=== PATIENT | female | born 1985 | race African-American/Black ===

== ENCOUNTER 2016-09-10 18:58 | Emergency (ER) | payer MEDICAID ==
[~2016-09-10] VITALS: Ht 162.6 cm; Wt 92.6 kg
[~2016-09-10 18:58] MED LIST: ULTR50TA5 PO
[2016-09-10 19:05] VITALS: BP 135/94; PULSE 80; RESP 16; TEMP 98.3; O2SAT 100
--- NOTE | 2016-09-10 22:08 | PD ---
HPI Chief Complaint: Abdominal Pain Time Seen by Provider: 21:50 Travel History International Travel<30 days: No Contact w/Intl Traveler<30days: No Traveled to known affect area: No History of Present Illness HPI 31-year-old female is complaining of lower abdominal pain. She's been having ongoing pain for a while but seems to be getting worse now she is having quite bad pain in the left lower quadrant. There is been no vomiting or diarrhea. She had an IUD in place which was removed a few months ago. She was a little bit nauseated earlier. She is having a lot of pain in the right lower quadrant 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-RECENT MRI) Psychiatric: Yes Reproductive: Yes Respiratory: No Immunizations Current: No Tetanus Vaccination: Unknown Influenza Vaccination: No ?: Not LMP: 08/27/16 "IT'S IRREGULAR LATELY" : 3 Para: 2 Miscarriage: 0 : 1 Ovarian Cysts: Yes Past Surgical History Appendectomy: Yes Gynecologic Surgery: Yes (TAB 06/06/11) Hysterectomy: No Tonsillectomy: Yes (ADENOIDS) Other Surgery: Yes (Adenoids) Social History Alcohol Use: No Tobacco Use: No Substance Use: No Allergies-Medications (Allergen,Severity, Reaction): Coded Allergies: Ceftin (Verified Allergy, Severe, 09/10/16) DENIES Darvocet-N 100 (Verified Allergy, Severe, VOMITING, 09/10/16) DENIES Penicillin (Unverified Allergy, Severe, Fever, 09/10/16) Amoxicillin (Unverified Adverse Reaction, Unknown, Nausea/Vomiting, ) Reported Meds & Prescriptions Reported Meds & Active Scripts Active No Active Prescriptions or Reported Medications Review of Systems General / Constitutional: No: Fever, Chills Eyes: No: Diploplia, Blurred Vision HENT: No: Headaches Cardiovascular: No: Chest Pain or Discomfort, Palpitations Respiratory: No: Cough, Shortness of Breath Gastrointestinal: Positive: Nausea, Abdominal Pain Genitourinary: Positive: Pelvic Pain Musculoskeletal: No: Myalgias Physical Exam Narrative GENERAL: Well-developed female SKIN: Focused skin assessment warm/dry. HEAD: Atraumatic. Normocephalic. EYES: Pupils equal and round. No scleral icterus. No injection or drainage. ENT: No nasal bleeding or discharge. Mucous membranes pink and moist. NECK: Trachea midline. No JVD. CARDIOVASCULAR: Regular rate and rhythm. No murmur appreciated. RESPIRATORY: No accessory muscle use. Clear to auscultation. Breath sounds equal bilaterally. GASTROINTESTINAL: Abdomen soft, non-tender, nondistended. Hepatic and splenic margins not palpable. Pelvic there is a moderate amount of whitish yellow discharge. There is pain with movement of the cervix. There is right adnexal tenderness MUSCULOSKELETAL: No obvious deformities. No clubbing. No cyanosis. No edema. NEUROLOGICAL: Awake and alert. No obvious cranial nerve deficits. Motor grossly within normal limits. Normal speech. PSYCHIATRIC: Appropriate mood and affect; insight and judgment normal. Data Data Last Documented VS Vital Signs Date Time Temp Pulse Resp B/P Pulse Ox O2 Delivery O2 Flow Rate FiO2 09/10/16 22:51 78 16 126/72 99 Room Air 09/10/16 19:05 98.3 Orders Complete Blood Count With Diff (09/10/16 22:01) Basic Metabolic Panel (Bmp) (09/10/16 22:01) Urinalysis - C+S If Indicated (09/10/16 22:01) Ed Urine Pregnancytest Poc (09/10/16 22:01) Ceftriaxone Inj (Rocephin Inj) (09/10/16 22:15) Ondansetron Inj (Zofran Inj) (09/10/16 22:15) Hydromorphone Pf Inj (Dilaudid Pf Inj) (09/10/16 22:15) Gc And Chlamydia Pcr (09/10/16 22:17) Wet Prep Profile (09/10/16 22:17) Urine Culture (09/10/16 22:05) Potassium Chloride (Kcl) (09/10/16 23:00) Labs Laboratory Tests Test 09/10/16 09/10/16 22:05 22:15 White Blood Count 9.4 TH/MM3 Red Blood Count 4.55 MIL/MM3 Hemoglobin 13.2 GM/DL Hematocrit 38.8 % Mean Corpuscular Volume 85.3 FL Mean Corpuscular Hemoglobin 29.1 PG Mean Corpuscular Hemoglobin 34.1 % Concent Red Cell Distribution Width 13.0 % Platelet Count 334 TH/MM3 Mean Platelet Volume 7.7 FL Neutrophils (%) (Auto) 53.4 % Lymphocytes (%) (Auto) 39.2 % Monocytes (%) (Auto) 4.1 % Eosinophils (%) (Auto) 2.3 % Basophils (%) (Auto) 1.0 % Neutrophils # (Auto) 5.0 TH/MM3 Lymphocytes # (Auto) 3.7 TH/MM3 Monocytes # (Auto) 0.4 TH/MM3 Eosinophils # (Auto) 0.2 TH/MM3 Basophils # (Auto) 0.1 TH/MM3 CBC Comment DIFF FINAL Differential Comment Urine Color YELLOW Urine Turbidity CLOUDY Urine pH 5.5 Urine Specific [place] 1.020 Urine Protein NEG mg/dL Urine Glucose (UA) NEG mg/dL Urine Ketones NEG mg/dL Urine Occult Blood LARGE Urine Nitrite NEG Urine Bilirubin NEG Urine Leukocyte Esterase SMALL Urine RBC 0-3 /hpf Urine WBC 9-14 /hpf Urine WBC Clumps FEW Urine Squamous Epithelial > 8 /hpf Cells Urine Bacteria MANY /hpf Urine Mucus FEW /lpf Microscopic Urinalysis Comment CULTURE INDICATED Sodium Level 139 MEQ/L Potassium Level 3.2 MEQ/L Chloride Level 103 MEQ/L Carbon Dioxide Level 27.7 MEQ/L Anion Gap 8 MEQ/L Blood Urea Nitrogen 10 MG/DL Creatinine 0.67 MG/DL Estimat Glomerular Filtration 123 ML/MIN Rate Random Glucose 100 MG/DL Calcium Level 9.2 MG/DL Clue Cells (Wet Prep) NONE SEEN Vaginal Trichomonas (Wet Prep) NONE SEEN Vaginal Yeast (Wet Prep) NONE SEEN MDM Medical Decision Making Medical Screen Exam Complete: Yes Emergency Medical Condition: Yes Medical Record Reviewed: Yes Differential Diagnosis Differential includes cervicitis, ovarian cyst, appendicitis Narrative Course Exam is most consistent with cervicitis. The patient has been given Rocephin. A CT scan of the abdomen and pelvis has been obtained Diagnosis Primary Impression: Cervicitis Departure Forms: Tests/Procedures, Work Release Enter return to work date: Sep 12, 2016 Scripts Hydrocodone-Acetaminophen (Lortab)7.5-325 Mg Tab1 Tab PO Q4H PRN (PAIN) #20 TAB Ref 0 Prov:Roman Galvez MD 09/10/16 Doxycycline Hyclate 100 Mg [id number] Mg PO BID #20 CAP Prov:Roman Galvez MD 09/10/16 Disposition: 01 DISCHARGE HOME Condition: Stable Roman Galvez MD Sep 10, 2016 22:08
[2016-09-10] MEDS ORDERED: HYDROmorphone HCL PF 1 MG/ML VIAL IV PUSH ONE (22:15)
[2016-09-10] MEDS ORDERED: ONDANSETRON HCL 4 MG/2 ML VIAL IV PUSH ONE (22:15)
[2016-09-10] MEDS ORDERED: cefTRIAXone INJ 1,000 MG in SODIUM CHLORIDE 0.9% INJ 100 ML IV ONE (22:15)
[2016-09-10 22:21] LABS: POTASSIUM 3.2 MEQ/L (3.5-5.1)
[2016-09-10 22:24] LABS: BICARBONATE 27.7 MEQ/L (21.0-32.0); BLOOD, URINE LARGE (NEG); GLUCOSE,URINE NEG (NEG); KETONE, URINE NEG (NEG); NITRITE,URINE NEG (NEG); PH, URINE 5.5 (5.0-8.5)
[2016-09-10 22:25] LABS: BASOPHIL # 0.1 TH/MM3 (0-0.2); EOSINOPHIL # 0.2 TH/MM3 (0-0.4); EOSINOPHIL % 2.3 % (0.0-4.0); HEMATOCRIT 38.8 % (35.0-46.0); HEMO FLAGS DIFF FINAL; LYMPH % 39.2 % (9.0-44.0); LYMPHOCYTE # 3.7 TH/MM3 (1.0-4.8); MEAN CELL VOLUME 85.3 FL (80.0-100.0); MEAN CORPUSCULAR HEMOGLOBIN 29.1 PG (27.0-34.0); MEAN CORPUSCULAR HGB CONC 34.1 % (32.0-36.0); MONO % 4.1 % (0.0-8.0); NEUT % 53.4 % (16.0-70.0); PLATELET COUNT 334 TH/MM3 (150-450); RED BLOOD COUNT 4.55 MIL/MM3 (4.00-5.30); WHITE BLOOD COUNT 9.4 TH/MM3 (4.0-11.0)
[2016-09-10 22:41] LABS: MUCUS URINE FEW /lpf (OCC); URINE COLOR YELLOW (YELLW/STRAW)
[2016-09-10 22:42] LABS: BACTERIA, URINE MANY /hpf; COMMENT (UR) CULTURE INDICATED; CULTURE IF INDICATED CULTURE INDICATED; RBC, URINE 0-3 /hpf (0-3); SQUAMOUS EPITHELIAL CELL URINE > 8 /hpf (0-5)
[2016-09-10 22:51] VITALS: BP 126/72; PULSE 78; RESP 16; O2SAT 99
[2016-09-10] MEDS ORDERED: POTASSIUM CHLORIDE 20 MEQ CONTROLLED RELEASE TAB PO ONE (23:00)
[2016-09-10] MEDS ORDERED: DOXY100C PO (23:56)
[2016-09-10] MEDS ORDERED: HYDR-3534 PO (23:59)
[2016-09-11] MEDS ORDERED: IOHEXOL 350 MG/ML 10 ML VIAL (for RAD DIAG) IV ONE (00:57)
--- NOTE | 2016-09-11 01:23 | RADRPT ---
EXAM DATE/TIME: 09/11/2016 00:44 [facility] COMPARISON: CT ABDOMEN & PELVIS W CONTRAST, February 05, 2015, 13:03. INDICATIONS : Right lower quadrant abdomen pain. IV CONTRAST: 100 cc Omnipaque 350 (iohexol) IV ORAL CONTRAST: No oral contrast ingested. RADIATION DOSE: 21.53 CTDIvol (mGy) MEDICAL HISTORY : None SURGICAL HISTORY : Appendectomy. ENCOUNTER: Initial ACUITY: 1 day PAIN SCALE: 8/10 LOCATION: Right lower quadrant abdomen TECHNIQUE: Volumetric scanning of the abdomen and pelvis was performed. Using automated exposure control and ad justment of the mA and/or kV according to patient size, radiation dose was kept as low as reasonably achievable to obtain optimal diagnostic quality images. DICOM format image data is available electro nically for review and comparison. FINDINGS: LOWER LUNGS: The visualized lower lungs are clear. LIVER: Homogeneous density without lesion. There is no dilation of the biliary tree. No calcified gallston es. SPLEEN: Normal size without lesion. PANCREAS: Within normal limits. KIDNEYS: Normal in size and shape. There is no mass, stone or hydronephrosis. ADRENAL GLANDS: Within normal limits. VASCULAR: There is no aortic aneurysm. BOWEL/MESENTERY: No evidence of bowel dilatation. No free air or free fluid. Appendix within normal limits. ABDOMINAL WALL: Within normal limits. RETROPERITONEUM: There is no lymphadenopathy. BLADDER: No wall thickening or mass. REPRODUCTIVE: Within normal limits. INGUINAL: There is no lymphadenopathy or hernia. MUSCULOSKELETAL: Within normal limits for patient age. CONCLUSION: No acute findings. Dhaval Salomon MD on September 11, 2016 at 1:18 Board Certified Radiologist. This report was verified electronically.
[2016-09-11 01:25] VITALS: BP 129/82; PULSE 77; RESP 16; TEMP 98; O2SAT 100
[2016-09-11 01:30] LABS: CHLAMYDIA PCR NOT DETECTED (NOT DETECT); NEISSERIA PCR NOT DETECTED (NOT DETECT)
--- NOTE | 2016-09-11 02:20 | PD ---
Physical Exam Date Seen by Provider: Sep 11, 2016 Time Seen by Provider: 00:05 Narrative Accepted in transfer of care from Dr. Lora Data Data Last Documented VS Vital Signs Date Time Temp Pulse Resp B/P Pulse Ox O2 Delivery O2 Flow Rate FiO2 09/11/16 01:25 98.0 77 16 129/82 100 Room Air Orders Complete Blood Count With Diff (09/10/16 22:01) Basic Metabolic Panel (Bmp) (09/10/16 22:01) Urinalysis - C+S If Indicated (09/10/16 22:01) Ed Urine Pregnancytest Poc (09/10/16 22:01) Ceftriaxone Inj (Rocephin Inj) (09/10/16 22:15) Ondansetron Inj (Zofran Inj) (09/10/16 22:15) Hydromorphone Pf Inj (Dilaudid Pf Inj) (09/10/16 22:15) Gc And Chlamydia Pcr (09/10/16 22:17) Wet Prep Profile (09/10/16 22:17) Urine Culture (09/10/16 22:05) Potassium Chloride (Kcl) (09/10/16 23:00) Ct Abd/Pel W Iv Contrast(Rout) (09/11/16 ) Iohexol 350 Inj (Omnipaque 350 Inj) (09/11/16 00:57) Labs Laboratory Tests Test 09/10/16 09/10/16 22:05 22:15 White Blood Count 9.4 TH/MM3 Red Blood Count 4.55 MIL/MM3 Hemoglobin 13.2 GM/DL Hematocrit 38.8 % Mean Corpuscular Volume 85.3 FL Mean Corpuscular Hemoglobin 29.1 PG Mean Corpuscular Hemoglobin 34.1 % Concent Red Cell Distribution Width 13.0 % Platelet Count 334 TH/MM3 Mean Platelet Volume 7.7 FL Neutrophils (%) (Auto) 53.4 % Lymphocytes (%) (Auto) 39.2 % Monocytes (%) (Auto) 4.1 % Eosinophils (%) (Auto) 2.3 % Basophils (%) (Auto) 1.0 % Neutrophils # (Auto) 5.0 TH/MM3 Lymphocytes # (Auto) 3.7 TH/MM3 Monocytes # (Auto) 0.4 TH/MM3 Eosinophils # (Auto) 0.2 TH/MM3 Basophils # (Auto) 0.1 TH/MM3 CBC Comment DIFF FINAL Differential Comment Urine Color YELLOW Urine Turbidity CLOUDY Urine pH 5.5 Urine Specific [place] 1.020 Urine Protein NEG mg/dL Urine Glucose (UA) NEG mg/dL Urine Ketones NEG mg/dL Urine Occult Blood LARGE Urine Nitrite NEG Urine Bilirubin NEG Urine Leukocyte Esterase SMALL Urine RBC 0-3 /hpf Urine WBC 9-14 /hpf Urine WBC Clumps FEW Urine Squamous Epithelial > 8 /hpf Cells Urine Bacteria MANY /hpf Urine Mucus FEW /lpf Microscopic Urinalysis Comment CULTURE INDICATED Sodium Level 139 MEQ/L Potassium Level 3.2 MEQ/L Chloride Level 103 MEQ/L Carbon Dioxide Level 27.7 MEQ/L Anion Gap 8 MEQ/L Blood Urea Nitrogen 10 MG/DL Creatinine 0.67 MG/DL Estimat Glomerular Filtration 123 ML/MIN Rate Random Glucose 100 MG/DL Calcium Level 9.2 MG/DL Clue Cells (Wet Prep) NONE SEEN Vaginal Trichomonas (Wet Prep) NONE SEEN Vaginal Yeast (Wet Prep) NONE SEEN Chlamydia trachomatis DNA NOT DETECTED (PCR) Neisseria gonorrhoeae DNA NOT DETECTED (PCR) [facility] Medical Record Reviewed: Yes Supervised Visit with [facility]: No Interpretation(s) Last Impressions Abdomen/Pelvis CT 09/11/16 0000 Signed Impressions: Service Date/Time: August 00:44 - CONCLUSION: No acute findings. Dhaval Salomon MD Differential Diagnosis Accepted in transfer of care from Dr. Lora; please refer to his dictation Narrative Course Accepted in transfer of care from Dr. Lora; please refer to his dictation; plan for follow-up of pending CT and patient disposition Patient informed of imaging results in stable for outpatient management Diagnosis Primary Impression: Cervicitis Referrals: [facility] call for appointment Primary Care Physician call for appointment Departure Forms: Work Release, Enter return to work date: Tests/Procedures Scripts Hydrocodone-Acetaminophen (Lortab)7.5-325 Mg Tab1 Tab PO Q4H PRN (PAIN) #20 TAB Ref 0 Prov:Roman Galvez MD 09/10/16 Doxycycline Hyclate 100 Mg [id number] Mg PO BID #20 CAP Prov:Roman Galvez MD 09/10/16 Disposition: 01 DISCHARGE HOME Condition: Stable Kelley Elmore MD Sep 11, 2016 02:20
== END 2016-09-11 02:31 | disposition home or self-care (01) ==
LOC: PHED 18:58
DX: N72 Inflammatory disease of cervix uteri (principal); B96.89 Other specified bacterial agents as the cause of diseases classified elsewhere
CPT/HCPCS: 74177; 80048; 81001; 84703; 85025; 87086; 87210; 87491; 87591; 96365; 96375; 99285; J0696; J1170; J2405; Q9967

== ENCOUNTER 2017-03-22 18:37 | Emergency (ER) | payer MEDICAID ==
[~2017-03-22] VITALS: Ht 162.6 cm; Wt 93.6 kg
[~2017-03-22 18:37] MED LIST changes: +DOXY100C PO; +HYDR-3534 PO; -ULTR50TA5 PO
[2017-03-22 18:45] VITALS: BP 138/84; PULSE 100; RESP 18; TEMP 98.7; O2SAT 98
--- NOTE | 2017-03-22 18:57 | PD ---
HPI Chief Complaint: Chest Pain Time Seen by Provider: 18:43 Travel History International Travel<30 days: No Contact w/Intl Traveler<30days: No Traveled to known affect area: No History of Present Illness HPI Patient has a 31-year-old female presents emergency department for chief complaint of left-sided chest pain associated with some shortness of breath which started several hours prior to presentation. She also complains of right leg swelling. Patient states has never happened to her before. Later in her counter she also started complaining of a headache with some mild nausea, no family history of early heart disease, no high blood pressure high cholesterol states she is not taking any oral contraceptive pills. States it hurts worse when she takes a deep breath, cough productive of yellow sputum. All of which have been gradually worsening. No alleviating factors has not tried any medications prior to arrival. She also later started complaining of feeling like she might of had a cyst in her breast. 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) Psychiatric: Yes Reproductive: Yes Respiratory: No Immunizations Current: No Tetanus Vaccination: Unknown ?: Unknown LMP: end of January : 3 Para: 2 Miscarriage: 0 : 1 Ovarian Cysts: Yes Past Surgical History Appendectomy: Yes Gynecologic Surgery: Yes (TAB 06/06/11) Hysterectomy: No Tonsillectomy: Yes (ADENOIDS) Other Surgery: Yes (Adenoids) Social History Alcohol Use: No Tobacco Use: No Substance Use: No Allergies-Medications (Allergen,Severity, Reaction): Coded Allergies: cefuroxime (Verified Allergy, Severe, 03/22/17) DENIES propoxyphene (Verified Allergy, Severe, VOMITING, 03/22/17) DENIES Reported Meds & Prescriptions Reported Meds & Active Scripts Active Review of Systems Except as stated in HPI: all other systems reviewed are Neg Physical Exam Narrative GENERAL: Well-developed, overweight female appears anxious but in no physical distress. SKIN: Focused skin assessment warm/dry. HEAD: Atraumatic. Normocephalic. EYES: Pupils equal and round. No scleral icterus. No injection or drainage. ENT: No nasal bleeding or discharge. Mucous membranes pink and moist. NECK: Trachea midline. No JVD. CARDIOVASCULAR: Regular rate and rhythm. No murmur appreciated. 2+ bilateral equal pulses in all 4 extremities. RESPIRATORY: No accessory muscle use. Clear to auscultation. Breath sounds equal bilaterally. GASTROINTESTINAL: Abdomen soft, non-tender, nondistended. Hepatic and splenic margins not palpable. MUSCULOSKELETAL: No obvious deformities. No clubbing. No cyanosis. No edema. I appreciate no leg swelling on either of her lower extremities, compartments are soft. Motor and sensory intact distally in all 4 extremities NEUROLOGICAL: Awake and alert. No obvious cranial nerve deficits. Motor grossly within normal limits. Normal speech. PSYCHIATRIC: Appropriate mood and affect; insight and judgment normal. Data Data Last Documented VS Vital Signs Date Time Temp Pulse Resp B/P (MAP) Pulse Ox O2 Delivery O2 Flow Rate FiO2 03/22/17 22:37 98.3 86 18 119/72 (88) 98 03/22/17 21:24 Room Air Orders Orders Electrocardiogram (03/22/17 ) B-Type Natriuretic Peptide (03/22/17 18:56) Ckmb (Isoenzyme) Profile (03/22/17 18:56) Complete Blood Count With Diff (03/22/17 18:56) Comprehensive Metabolic Panel (03/22/17 18:56) D-Dimer (03/22/17 18:56) Magnesium (Mg) (03/22/17 18:56) Prothrombin Time / Inr (Pt) (03/22/17 18:56) Act Partial Throm Time (Ptt) (03/22/17 18:56) Troponin I (03/22/17 18:56) Ecg Monitoring (03/22/17 18:56) Iv Access Insert/Monitor (03/22/17 18:56) Oximetry (03/22/17 18:56) Oxygen Administration (03/22/17 18:56) Sodium Chloride 0.9% Flush (Ns Flush) (03/22/17 19:00) Ketorolac Inj (Toradol Inj) (03/22/17 19:00) Diphenhydramine Inj (Benadryl Inj) (03/22/17 20:00) Prochlorperazine Inj (Compazine Inj) (03/22/17 20:00) Chest, Pa & Lat (03/22/17 ) Ed Discharge Order (03/22/17 22:10) Labs Laboratory Tests Test 03/22/17 19:05 White Blood Count 9.6 TH/MM3 Red Blood Count 4.83 MIL/MM3 Hemoglobin 13.1 GM/DL Hematocrit 42.1 % Mean Corpuscular Volume 87.3 FL Mean Corpuscular Hemoglobin 27.1 PG Mean Corpuscular Hemoglobin Concent 31.0 % Red Cell Distribution Width 13.9 % Platelet Count 392 TH/MM3 Mean Platelet Volume 8.1 FL Neutrophils (%) (Auto) 36.0 % Lymphocytes (%) (Auto) 52.8 % Monocytes (%) (Auto) 6.7 % Eosinophils (%) (Auto) 3.0 % Basophils (%) (Auto) 1.5 % Neutrophils # (Auto) 3.5 TH/MM3 Lymphocytes # (Auto) 5.1 TH/MM3 Monocytes # (Auto) 0.6 TH/MM3 Eosinophils # (Auto) 0.3 TH/MM3 Basophils # (Auto) 0.1 TH/MM3 CBC Comment DIFF FINAL Differential Total Cells Counted 100 Neutrophils % (Manual) 34 % Lymphocytes % 58 % Monocytes % 3 % Eosinophils % 4 % Basophils % 1 % Neutrophils # (Manual) 3.3 TH/MM3 Differential Comment FINAL DIFF MANUAL Platelet Estimate NORMAL Platelet Morphology Comment NORMAL Red Cell Morphology Comment NORMAL Prothrombin Time 10.0 SEC Prothromb Time International Ratio 1.0 RATIO Activated Partial Thromboplast Time 26.4 SEC D-Dimer Quantitative (PE/DVT) LESS THAN 0.19 MG/L FEU Blood Urea Nitrogen 7 MG/DL Creatinine 0.67 MG/DL Random Glucose 89 MG/DL Total Protein 7.6 GM/DL Albumin 3.7 GM/DL Calcium Level 8.5 MG/DL Magnesium Level 1.9 MG/DL Alkaline Phosphatase 90 U/L Aspartate Amino Transf (AST/SGOT) 12 U/L Alanine Aminotransferase (ALT/SGPT) 19 U/L Total Bilirubin 0.2 MG/DL Sodium Level 138 MEQ/L Potassium Level 3.6 MEQ/L Chloride Level 105 MEQ/L Carbon Dioxide Level 25.2 MEQ/L Anion Gap 8 MEQ/L Estimat Glomerular Filtration Rate 123 ML/MIN Total Creatine Kinase 76 U/L Troponin I LESS THAN 0.02 NG/ML B-Type Natriuretic Peptide LESS THAN 2 PG/ML MDM Medical Decision Making Medical Screen Exam Complete: Yes Emergency Medical Condition: Yes Differential Diagnosis ACS unlikely, AMI unlikely, PE unlikely, DVT unlikely, pneumonia unlikely, chest wall pain, GERD, esophageal spasm, pleurisy, headache, migraine, cluster, breast cyst. Narrative Course Patient roomed emergency department, after Toradol she began complaining of a headache, given Benadryl and Compazine and feeling much better. Basic labs reassuring, troponin negative, BMP negative, ultimately d-dimer negative and I think with a low clinical suspicion this is adequate to rule out pulmonary embolism and DVT in the patient. On revisit the patient is feeling much better like to go home. Discussed her complaint of breast cyst to the nursing staff and offered for examination the patient refused at this time. Discussed need follow-up with a primary care physician and return to ED criteria. She stable for discharge. Diagnosis Primary Impression: Chest pain Additional Impression: Headache Disposition: 01 DISCHARGE HOME Condition: Stable Justin Sarmiento MD Mar 22, 2017 18:57
[2017-03-22] MEDS ORDERED: KETOROLAC TROMETHAMINE 30 MG/ML (IVP) VIAL IV PUSH ONE (19:00)
[2017-03-22] MEDS ORDERED: SODIUM CHLORIDE 0.9% FLUSH 10 ML FLUSH IVF PRN (19:00)
[2017-03-22 19:09] VITALS: BP 132/79; PULSE 82; RESP 18; O2SAT 100
[2017-03-22 19:15] LABS: AUTOMATED NEUTROPHIL # 3.5 TH/MM3 (1.8-7.7); BASOPHIL # 0.1 TH/MM3 (0-0.2); BASOPHIL % 1.5 % (0.0-2.0); EOSINOPHIL # 0.3 TH/MM3 (0-0.4); HEMATOCRIT 42.1 % (35.0-46.0); HEMOGLOBIN 13.1 GM/DL (11.6-15.3); LYMPH % 52.8 % (9.0-44.0); LYMPHOCYTE # 5.1 TH/MM3 (1.0-4.8); MEAN CELL VOLUME 87.3 FL (80.0-100.0); MEAN CORPUSCULAR HEMOGLOBIN 27.1 PG (27.0-34.0); MEAN PLATELET VOLUME 8.1 FL (7.0-11.0); MONO % 6.7 % (0.0-8.0); MONOCYTE # 0.6 TH/MM3 (0-0.9); PLATELET COUNT 392 TH/MM3 (150-450); RED BLOOD COUNT 4.83 MIL/MM3 (4.00-5.30); RED CELL DISTRIBUTION WIDTH 13.9 % (11.6-17.2); WHITE BLOOD COUNT 9.6 TH/MM3 (4.0-11.0)
[2017-03-22 19:22] LABS: CHLORIDE 105 MEQ/L (98-107); SODIUM (NA) 138 MEQ/L (136-145)
[2017-03-22 19:25] LABS: CALCIUM 8.5 MG/DL (8.5-10.1)
[2017-03-22 19:26] LABS: ALBUMIN 3.7 GM/DL (3.4-5.0); BICARBONATE 25.2 MEQ/L (21.0-32.0); BLOOD UREA NITROGEN 7 MG/DL (7-18); GLUCOSE,RANDOM 89 MG/DL (74-106); MAGNESIUM 1.9 MG/DL (1.5-2.5)
[2017-03-22 19:29] LABS: ALT (GPT) 19 U/L (10-53); AST (GOT) 12 U/L (15-37); CREATININE 0.67 MG/DL (0.50-1.00); GLOMERULAR FILTRATION RATE 123 ML/MIN (>89)
[2017-03-22 19:30] LABS: TOTAL BILIRUBIN ADULT 0.2 MG/DL (0.2-1.0); TOTAL PROTEIN 7.6 GM/DL (6.4-8.2)
[2017-03-22 19:32] LABS: ALKALINE PHOSPHATASE 90 U/L (45-117)
[2017-03-22 19:34] LABS: TROPONIN I LESS THAN 0.02 NG/ML (0.02-0.05)
[2017-03-22 19:48] LABS: BASOPHILS 1 % (0-2); LYMPHOCYTES 58 % (9-44); MONOCYTES 3 % (0-8); NEUTROPHIL # MANUAL DIFF 3.3 TH/MM3 (1.8-7.7); POLYS (SEG NEUTROPHILS) 34 % (16-70)
[2017-03-22] MEDS ORDERED: PROCHLORPERAZINE INJ 10 MG/2 ML VIAL IV PUSH ONE (20:00)
[2017-03-22] MEDS ORDERED: diphenhydrAMINE HCL 50 MG/ML VIAL IV PUSH ONE (20:00)
[2017-03-22 20:40] VITALS: BP 121/71; PULSE 91; RESP 16; O2SAT 100
[2017-03-22 21:15] LABS: D-DIMER LESS THAN 0.19 MG/L FEU (0.00-0.50)
[2017-03-22 21:24] VITALS: BP 129/75; PULSE 82; RESP 16; O2SAT 100
--- NOTE | 2017-03-22 21:38 | RADRPT ---
EXAM DATE/TIME: 03/22/2017 21:21 [facility] COMPARISON: No previous studies available for comparison. INDICATIONS : Cough, shortness of breath. MEDICAL HISTORY : None. SURGICAL HISTORY : None. ENCOUNTER: Initial ACUITY: 1 week PAIN SCORE: 0/10 LOCATION: Bilateral chest FINDINGS: PA and lateral views of the chest demonstrate the lungs to be symmetrically aerated without evidence of mass, infiltrate or effusion. The cardiomediastinal contours are unremarkable. Osseous structure s are intact. CONCLUSION: No acute disease. Nate Waters MD on March 22, 2017 at 21:36 Board Certified Radiologist. This report was verified electronically.
[2017-03-22 22:37] VITALS: BP 119/72; TEMP 98.3
--- NOTE | 2017-03-23 19:25 | EKG ---
Date Performed: 03/22/2017 Time Performed: 18:46:00 PTAGE: 31 years EKG: Sinus rhythm NONSPECIFIC T-WAVE ABNORMALITY BORDERLINE ECG PREVIOUS TRACING : 02/05/2016 18.20 Since previous tracing, no significant change noted DOCTOR: Christiane Spears Interpretating Date/Time 03/23/2017 19:23:36
== END 2017-03-22 22:40 | disposition home or self-care (01) ==
LOC: PHED 18:37
DX: R07.9 Chest pain, unspecified (principal); R51 Headache; R06.02 Shortness of breath; R94.31 Abnormal electrocardiogram [ECG] [EKG]; J45.909 Unspecified asthma, uncomplicated; F41.8 Other specified anxiety disorders; M06.9 Rheumatoid arthritis, unspecified
CPT/HCPCS: 71046; 80053; 82550; 83735; 83880; 84484; 85007; 85027; 85379; 85610; 85730; 93005; 96374; 96375; 99285; J0780; J1200; J1885; 85025

== ENCOUNTER 2017-03-28 17:55 | Emergency (ER) | payer MEDICAID ==
[~2017-03-28] VITALS: Ht 162.6 cm; Wt 93.0 kg
[2017-03-28 18:01] VITALS: BP 146/84; PULSE 88; RESP 16; TEMP 98.2; O2SAT 99
[2017-03-28 18:30] LABS: BILIRUBIN, URINE NEG (NEG); BLOOD, URINE LARGE (NEG); GLUCOSE,URINE NEG (NEG); KETONE, URINE NEG (NEG); NITRITE,URINE NEG (NEG); URINE LEUKOCYTE ESTERASE TRACE (NEG)
[2017-03-28 18:32] LABS: URINE COLOR RED (YELLW/STRAW)
[2017-03-28 18:33] LABS: AMORPHOUS SEDIMENT, URINE FEW; RBC, URINE 100-200 /hpf (0-3); SQUAMOUS EPITHELIAL CELL URINE 0-5 /hpf (0-5); WHITE BLOOD CELL CLUMPS OCC
[2017-03-28 19:01] VITALS: BP 150/85; PULSE 82; RESP 16; O2SAT 100
[2017-03-28] MEDS ORDERED: IBUP-232 PO (20:16)
[2017-03-28] MEDS ORDERED: CIPR-9 PO (20:16)
--- NOTE | 2017-03-28 20:16 | PD ---
HPI Chief Complaint: Editor Dictionary Problem/Complaint Time Seen by Provider: 20:00 Travel History International Travel<30 days: No Contact w/Intl Traveler<30days: No Traveled to known affect area: No History of Present Illness HPI The patient is a 31-year-old female who has right flank pain and suprapubic pain with every menstrual period. This is been going on for years and her practical nursing faculty recommended a hysterectomy. Unfortunately, her insurance changed to share of cost and she no longer has a practical nursing faculty. She does have frequency and urgency. She denies any fever. She also has a wound since 1995 that she states has been oozing a malodorous white discharge. She states there is no possibility of . The patient states that today's pain is the same as the pain that she has had for years when she has a menstrual period. 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) Psychiatric: Yes Reproductive: Yes Respiratory: No Immunizations Current: No Tetanus Vaccination: Unknown Influenza Vaccination: No ?: Not LMP: 02/24/17 : 3 Para: 2 Miscarriage: 0 : 1 Ovarian Cysts: Yes Past Surgical History Appendectomy: Yes Gynecologic Surgery: Yes (TAB 06/06/11) Hysterectomy: No Tonsillectomy: Yes (ADENOIDS) Other Surgery: Yes (Adenoids) Social History Alcohol Use: No Tobacco Use: No Substance Use: No Allergies-Medications (Allergen,Severity, Reaction): Coded Allergies: cefuroxime (Verified Allergy, Severe, 03/28/17) DENIES propoxyphene (Verified Allergy, Severe, VOMITING, 03/28/17) DENIES Reported Meds & Prescriptions Reported Meds & Active Scripts Active Review of Systems Except as stated in HPI: all other systems reviewed are Neg Physical Exam Narrative GENERAL: The patient is alert, oriented 3 in moderate apparent distress with her right flank and pelvic pain. Her vital signs show blood pressure 146/84 but otherwise normal. SKIN: Focused skin assessment warm/dry. There is a scar and tenderness around the scar in the right lower quadrant but no discharge is noted from this scar. I tried to press and express any pus but I did not see any whole and could not produce any discharge from this old scar. HEAD: Atraumatic. Normocephalic. EYES: Pupils equal and round. No scleral icterus. No injection or drainage. ENT: No nasal bleeding or discharge. Mucous membranes pink and moist. NECK: Trachea midline. No JVD. CARDIOVASCULAR: Regular rate and rhythm. No murmur appreciated. RESPIRATORY: No accessory muscle use. Clear to auscultation. Breath sounds equal bilaterally. GASTROINTESTINAL: Abdomen soft, with tenderness in the right flank and bilateral suprapubic area to direct palpation, nondistended. Hepatic and splenic margins not palpable. No guarding or rebound is present. MUSCULOSKELETAL: No obvious deformities. No clubbing. No cyanosis. No edema. NEUROLOGICAL: Awake and alert. No obvious cranial nerve deficits. Motor grossly within normal limits. Normal speech. PSYCHIATRIC: Appropriate mood and affect; insight and judgment normal. Data Data Last Documented VS Vital Signs Date Time Temp Pulse Resp B/P (MAP) Pulse Ox O2 Delivery O2 Flow Rate FiO2 03/28/17 19:01 82 16 150/85 (106) 100 Room Air 03/28/17 18:01 98.2 Orders Orders Urinalysis - C+S If Indicated (03/28/17 18:06) Ed Urine Pregnancytest Poc (03/28/17 18:06) Urine Culture (03/28/17 18:06) Labs Laboratory Tests Test 03/28/17 18:06 Urine Collection Type CLEAN CATCH Urine Color RED Urine Turbidity SLIGHT Urine pH 7.0 Urine Specific [place] 1.002 Urine Protein 100 mg/dL Urine Glucose (UA) NEG mg/dL Urine Ketones NEG mg/dL Urine Occult Blood LARGE Urine Nitrite NEG Urine Bilirubin NEG Urine Leukocyte Esterase TRACE Urine RBC 100-200 /hpf Urine WBC 9-14 /hpf Urine WBC Clumps OCC Urine Squamous Epithelial Cells 0-5 /hpf Urine Amorphous Sediment FEW Microscopic Urinalysis Comment CULTURE INDICATED Urine Collection Time 1806 MDM Medical Decision Making Medical Screen Exam Complete: Yes Emergency Medical Condition: Yes Medical Record Reviewed: Yes Interpretation(s) The urine shows slight turbidity with 100 protein, red in color with 102 100 red cells and 9-14 white cells Differential Diagnosis Menorrhagia, cystitis, pyelonephritis Narrative Course The patient's blood in her urine is likely from the menstrual period. She does have an increased amount of white cells in the urine for the amount of red cells and she does have symptoms of a urinary tract infection with her frequency and urgency. She also has some right flank pain. She says, however, that she always gets right flank pain with her menstrual period. Impressions: Menorrhagia, cystitis Plan: The patient we given Motrin 600 mg to take 3 times daily and Cipro 500 mg twice daily for 10 days. Diagnosis Primary Impression: Menorrhagia with regular cycle Additional Impression: Cystitis Med/Other Pt SpecificInfo: Prescription(s) given Scripts Ibuprofen (Ibuprofen) 600 Mg Tab 600 MG PO TID, #33 TAB 0 Refills Prov: Papi Roberson MD 03/28/17 Ciprofloxacin (Cipro) 500 Mg Tab 500 MG PO BID for Infection for 10 Days, #20 TAB 0 Refills Prov: Papi Roberson MD 03/28/17 Disposition: 01 DISCHARGE HOME Condition: Stable Papi Roberson MD Mar 28, 2017 20:16
[2017-03-28] MEDS ORDERED: CIPROFLOXACIN 500 MG TAB PO ONE (20:30)
[2017-03-28] MEDS ORDERED: IBUPROFEN 600 MG TAB PO ONE (20:30)
[2017-03-28 20:39] VITALS: BP 133/85
== END 2017-03-28 20:42 | disposition home or self-care (01) ==
LOC: PHED 17:55
DX: N92.0 Excessive and frequent menstruation with regular cycle (principal); N30.90 Cystitis, unspecified without hematuria; F32.9 Major depressive disorder, single episode, unspecified; J45.909 Unspecified asthma, uncomplicated; M06.9 Rheumatoid arthritis, unspecified; F41.9 Anxiety disorder, unspecified
CPT/HCPCS: 81001; 84703; 87086; 99283